=== PATIENT | male | born 1940 | race Caucasian/White ===

== ENCOUNTER → 2016-09-08 | Outpatient (CLI) | payer MEDICARE, BC | LOC: GMAB 12:54 | PROVIDERS: ATTEND Family Medicine | DX: R53.82 Chronic fatigue, unspecified (principal); I10 Essential (primary) hypertension; Z12.5 Encounter for screening for malignant neoplasm of prostate | CPT/HCPCS: 84403; 84443; G0103 ==

== ENCOUNTER → 2017-02-07 | Outpatient (CLI) | payer MEDICARE ==
--- NOTE | 2017-02-07 13:52 | CT ---
EXAM DESCRIPTION: Chest w/o Contrast CLINICAL HISTORY: abnormal results of pulmonary function studies COMPARISON: June 02, 2016 TECHNIQUE: Chest CT was performed without IV contrast. This exam was performed according to our departmental dose-optimization program, which includes automated exposure control, adjustment of the mA and/or kV according to patient size and/or use of iterative reconstruction technique. FINDINGS: Coronary artery calcifications are noted. There is no thoracic aortic aneurysm. No mediastinal or hilar adenopathy. No pleural or pericardial effusion. The central airways are clear. There is no airspace consolidation or lung mass. Is a tiny calcified granuloma in the right lower lobe with a partially calcified right hilar lymph node. No additional lung nodule is identified. There is no CT evidence of emphysema. No interstitial thickening or bronchial wall thickening is seen. There is diffuse fatty filtration of the liver with areas of focal sparing adjacent to the ayana hepatis. Postoperative changes in the right shoulder are only partially visualized. There is no concerning bone lesion. IMPRESSION: Evidence of old healed granulomatous disease and coronary artery disease, otherwise unremarkable exam. Electronically signed by: Julio Cesar Lin MD 02/07/2017 1:52 PM CDT Workstation: [id number]
== END | disposition home or self-care (01) ==
LOC: CT 08:56
PROVIDERS: ATTEND Family Medicine
DX: R94.2 Abnormal results of pulmonary function studies (principal)

== ENCOUNTER → 2017-03-02 | Outpatient (CLI) | payer MEDICARE ==
--- NOTE | 2017-03-02 15:49 | US ---
EXAM DESCRIPTION: Aorta CLINICAL HISTORY: 76 years Male, AAA COMPARISON: Previous abdominal CTA February 24, 2016. FINDINGS: Limited image quality of the aorta was obtained with the AP diameter of the proximal aorta estimated at 2 cm and the mid aorta at 2.1 cm. A focal infrarenal aortic aneurysm measures 4.4 x 3.9 cm in size. This corresponds to a previous measurement of 4.3 cm in the AP plane on the previous years CTA. Right common iliac artery is mildly aneurysmal at 1.7 cm and the left common iliac artery upper normal at 1.3 cm. IMPRESSION: Stable 4.4 x 3.9 cm infrarenal distally aortic aneurysm, little changed from previous CTA in 2016. Mild aneurysmal dilatation of the right common iliac artery also noted. 12 month follow-up to reevaluate for stability or interval growth recommended. Electronically signed by: Aly Lundy MD 03/02/2017 3:47 PM CDT
== END ==
LOC: US 09:13
PROVIDERS: ATTEND Family Medicine
DX: I71.4 Abdominal aortic aneurysm, without rupture (principal)

== ENCOUNTER → 2017-10-03 | Outpatient (CLI) | payer MEDICARE | LOC: GMAB 11:34 | PROVIDERS: ATTEND Family Medicine | DX: Z12.5 Encounter for screening for malignant neoplasm of prostate (principal); I10 Essential (primary) hypertension | CPT/HCPCS: 84443; G0103 ==

== ENCOUNTER → 2017-12-06 | Outpatient (CLI) | payer MEDICARE ==
--- NOTE | 2017-12-07 06:29 | CT ---
EXAM DESCRIPTION: CTA of the abdomen and pelvis.: Computed Tomography. CLINICAL HISTORY: Abdominal aortic aneurysm. COMPARISON: CTA abdomen 02/24/2016. TECHNIQUE: CT angiography of the abdominal aorta and both lower extremities is performed during rapid bolus administration of IV contrast media. Three-dimensional volume-rendering imaging is reviewed along with 5.0 mm axial source images, and 2.0 mm coronal and sagittal reformats. Total Exam DLP: 1049.17 mGy-cm. This exam was performed according to our departmental CT dose-optimization program which includes automated exposure control, adjustment of the mA and/or kV according to patient size and/or use of iterative reconstruction technique; to reduce radiation dose to as low as reasonably achievable (ALARA). FINDINGS: Upper abdominal Aorta: ectasia with intimal wall thickening and minimal atherosclerotic calcification. No aneurysm, dilation, or stenosis. Mid-abdominal aorta: Minimal atherosclerotic calcification and intimal wall thickening with bilateral calcification of the single renal artery ostia. No aneurysm, dilation or stenosis. Distal abdominal aorta: 4.2 cm length aneurysm which terminates at the bifurcation. Maximum diameter is 4.3 x 3.6 cm. True lumen is 3.4 cm diameter. No contrast extravasation into the clot or abdomen. No periaortic fatty stranding or soft tissue mass. Moderate atherosclerotic calcification. Common iliacs: Minimal ectasia bilaterally with approximately 50% diameter stenosis. Internal iliacs: Approximately 50% diameter stenosis proximally and bilaterally. Bilateral external iliac artery: Minimal to moderate narrowing proximally bilaterally with normal caliber distally. Bilateral [employer]'s: Minimal narrowing atherosclerotic calcification bilaterally. Bilateral SFAs proximally minimal atherosclerotic calcification and narrowing. Other: Minimal densities in the bilateral lung bases. Fatty density of the liver. Right lobe measures 22 cm long axis. 1 cm gallstone in the gallbladder. Dilated common bile duct. Prostate gland with calcifications abutting the urinary bladder and seminal vesicles. Multiple levels of lumbar spondylosis also in the included thoracic segments with multiple levels of bilateral lumbar foraminal narrowing. Bilateral fatty inguinal hernias not containing bowel. Diastases of the umbilicus containing fat but no bowel. IMPRESSION: 1. Abdominal aortic aneurysm in the distal abdominal aorta is stable compared to the prior study. No extravasation of contrast into the thrombus or clot or periaortic soft tissues. Atherosclerotic changes in the aorta and major branch vessels superior to the aneurysm and inferior to the aneurysm are also stable. 2. Stable fatty liver with hepatomegaly. Stable gallstone and common bile duct dilation. Stable fatty diastases of the umbilicus with no hernia. Electronically signed by: Clement Alves MD 12/07/2017 6:28 AM CDT
== END ==
LOC: CT 09:00
PROVIDERS: ATTEND Family Medicine
DX: I71.4 Abdominal aortic aneurysm, without rupture (principal); K76.0 Fatty (change of) liver, not elsewhere classified; K80.80 Other cholelithiasis without obstruction

== ENCOUNTER → 2018-10-07 | Outpatient (CLI) | payer MEDICARE | LOC: GMAE 10:32 | PROVIDERS: ATTEND Family Medicine | DX: I10 Essential (primary) hypertension (principal) ==